=== PATIENT | female | born 1990 | race Caucasian/White ===

== ENCOUNTER 2017-06-06 13:46 | Emergency (ER) | payer BC, OTHER ==
[~2017-06-06] VITALS: Ht 170.2 cm; Wt 52.2 kg
[2017-06-06 13:46] VITALS: BP_SYST 123
--- NOTE | 2017-06-06 15:18 | NUR ---
Patient to [facility] for evaluation. Side rails up. Report recieved from JOSE Valle
--- NOTE | 2017-06-06 15:22 | NUR ---
Patient ambulates to bedside. Patient complaints of right upper abdominal pain with nausea and vomiting for 6 days. Patient is currently on bactrim last 3 days for UTI. Continues to have N/V today. 8/10 pain. Bowel movements normal per patient and no pain with urination. no othe complaints/injuries per patient or as noted. Will continue to monitor.
--- NOTE | 2017-06-06 15:33 | NUR ---
PEYTON Carter at bedside examining patient.
[2017-06-06] MEDS ORDERED: NACL 0.9% 1,000 ML IV ONE (15:45)
[2017-06-06] MEDS ORDERED: KETOROLAC TROMETHAMINE 30 MG VIAL IVP ONE (15:45)
[2017-06-06] MEDS ORDERED: ONDANSETRON HCL 4 MG/2 ML VIAL IVP ONE (15:45)
[2017-06-06 15:49] LABS: BASOPHILS % (AUTO) 0.6 % (0.0-2.0); EOSINOPHILS # (AUTO) 0.1 K/uL (0.0-0.4); EOSINOPHILS % (AUTO) 1.5 % (0.0-4.0); HEMATOCRIT 42.6 % (36-48); LYMPHOCYTES # (AUTO) 1.9 K/uL (1.0-5.5); MEAN CORPUSCULAR HEMOGLOBIN 30 pg (27-31); MEAN CORPUSCULAR HGB CONC 33 % (32-36); MEAN CORPUSCULAR VOLUME 91 fL (79.0-98.0); MONOCYTES # (AUTO) 0.6 K/uL (0.0-1.0); MONOCYTES % (AUTO) 9.9 % (1.7-9.3); NEUTROPHILS # (AUTO) 3.2 K/uL (1.8-7.7); PLATELET COUNT (AUTO) 301 K/uL (130-430); RED BLOOD CELL COUNT(AUTO) 4.68 MIL/uL (4.2-6.2); RED CELL DISTRIBUTION WIDTH 11.1 % (9.0-15.0); WHITE BLOOD COUNT (AUTO) 5.8 K/uL (4.8-10.8)
[2017-06-06 15:59] LABS: CALCIUM 9.9 mg/dL (8.4-11.0); CREATININE 0.9 mg/dL (0.55-1.30); POTASSIUM 4.5 mmol/L (3.5-5.1)
--- NOTE | 2017-06-06 16:00 | NUR ---
# 22 gauge angiocath placed to Left Hand. Use of asceptic technique. Opsite placed over site. Blood return noted. Flushed with 10 cc of normal saline. No evidence of infiltration noted. Patient tolerated well.
[2017-06-06 16:03] LABS: BILIRUBIN,URINE NEGATIVE (NEGATIVE); BLOOD, URINE 3+ (NEGATIVE); CLARITY/URINE CLEAR (CLEAR); COLOR,URINE YELLOW (YELLOW); GLUCOSE,URINE NEGATIVE (NEGATIVE); KETONES,URINE NEGATIVE (NEGATIVE); LEUKOCYTE ESTERASE ,URINE NEGATIVE (NEGATIVE); NITRITE, URINE NEGATIVE (NEGATIVE); PH,URINE 6.5 (5.0-8.0); PROTEIN URINE NEGATIVE (NEGATIVE); UROBILINOGEN,URINE 0.2 (0.2-1.0)
[2017-06-06 16:04] LABS: ALBUMIN 4.7 g/dL (3.4-4.8); TOTAL BILIRUBIN 0.6 mg/dL (0.0-1.0)
[2017-06-06 16:24] LABS: BACTERIA,URINE MODERATE /HPF (None Seen); WBC,URINE 0-3 /HPF (0-3)
[2017-06-06 16:25] LABS: MUCUS,URINE None Seen /LPF (None Seen)
[2017-06-06] MEDS ORDERED: IOHEXOL 100 ML IV ONE (17:03)
[2017-06-06] MEDS ORDERED: MORPHINE 4 MG/ML INJ. SYRINGE IVP ONE (17:45)
[2017-06-06 18:10] VITALS: BP_SYST 120
--- NOTE | 2017-06-06 18:10 | NUR ---
Patient given written and verbal discharge instructions and verbalizes understanding. ER MD discussed with patient the results and treatment provided. Patient in stable condition. ID arm band removed. IV catheter removed intact and dressing applied, no active bleeding. Rx of Docusate Sodium, Tylenol with Codeine #3, Motrin, and Zofran given. Patient educated on pain management and to follow up with PMD in 2-3 days . Pain Scale 3/10. Tolerable stated by patient. Will go to fill prescription after discharge. Opportunity for questions provided and answered.
== END 2017-06-06 18:10 | disposition home or self-care (01) ==
LOC: SED 13:46
DX: R10.2 Pelvic and perineal pain (principal); R11.2 Nausea with vomiting, unspecified; R03.0 Elevated blood-pressure reading, without diagnosis of hypertension; F32.9 Major depressive disorder, single episode, unspecified
CPT/HCPCS: 36415; 74000; 74177; 80053; 81000; 81025; 83690; 85025; 87040; 87086; 96361; 96374; 96375; 99285; J1885; J2270; J2405; J7030; Q9967